=== PATIENT | female | born 1940 | race Asian ===

== ENCOUNTER 2018-12-29 11:12 | Emergency (ER) | payer MEDICARE ==
[~2018-12-29] VITALS: Ht 154.9 cm; Wt 48.5 kg
[~2018-12-29 11:12] MED LIST: AMOX-291 PO; CLAR-36 PO; MULT-257 PO; OMEP-110 PO; b12 PO; biotin PO; calcium PO; copper PO; fish oil PO; flax seed oil PO; folic acid PO; selenium PO; vitamin b6 PO; vitamin c PO
[2018-12-29 11:18] VITALS: BP 132/94
[2018-12-29] MEDS ORDERED: LIDOCAINE-MPF 1%, 5ML ONE (11:28)
[2018-12-29] MEDS ORDERED: LIDOCAINE 1%, 10ML INFIL ONE (11:30)
--- NOTE | 2018-12-29 11:31 | NUR ---
PATIENT PRESENTS TO ED TODAY FOR POSTERIOR HEAD LAC, GLF WHILE GARDENING THIS AM. DENIES LOC, HEAD/NECK PAIN. A+OX4. PATIENT ANXIOUS/COOPERATIVE, AWAITING CT AT THIS TIME. NADN. CALL LIGHT WITHIN REACH.
[2018-12-29] MEDS ORDERED: BACITRACIN ZINC OINT 500U/GM, 0.9 GM ONE (12:35)
--- NOTE | 2018-12-29 13:10 | NUR ---
PT AMBULATORY AT TIME OF DISCHARGE. EXTRA DRESSING SUPPLIES PROVIDED.
== END 2018-12-29 13:13 | disposition home or self-care (01) ==
LOC: ED 13:05
DX: S01.01XA Laceration without foreign body of scalp, initial encounter (principal); Z90.49 Acquired absence of other specified parts of digestive tract; W01.0XXA Fall on same level from slipping, tripping and stumbling without subsequent striking against object, initial encounter; Y93.89 Activity, other specified; Y92.89 Other specified places as the place of occurrence of the external cause; Y99.8 Other external cause status
CPT/HCPCS: 12032; 70450; 72125; 99284; J3490